=== PATIENT | female | born 1955 | race Caucasian/White ===

== ENCOUNTER → 2016-12-15 | Outpatient (CLI) | payer MEDICARE ==
[~2016-12-15] MED LIST: ATORVASTATIN CA10 MG PO; CALCIUM CITRATE1 T15 PO; CYMBALTA30 MG PO; DICLOFENAC SODI50 MG PO; DULOXETINE HCL60 MG PO; IBUPROFEN800 MG PO; MELATONIN5 M1 PO; MULTI VITAMIN1 EACH PO; NEURONTIN PO; OMEPRAZOLE40 M1 PO; TIZANIDINE HCL4 M1 PO; ULTRAM PO; URSODIOL300 MG PO
[2016-12-15 16:35] LABS: BILIRUBIN, DIRECT 0.1 mg/dL (0.0-0.2); BILIRUBIN,INDIRECT 0.8 mg/dL (0.0-0.9); BILIRUBIN,TOTAL 0.9 mg/dL (0.2-2.0); PROTEIN TOTAL SERUM 7.3 g/dL (6.0-8.3)
== END | disposition home or self-care (01) ==
LOC: SLAB 15:52
PROVIDERS: Internal Medicine Gastroenterology
DX: K21.9 Gastro-esophageal reflux disease without esophagitis (principal); K75.4 Autoimmune hepatitis
CPT/HCPCS: 36415; 80076; 85651